=== PATIENT | female | born 1955 | race Caucasian/White ===

== ENCOUNTER 2021-03-12 05:23 | Observation (INO) | payer MEDICARE, OTHER ==
[2021-03-04 10:34] LABS: BASOPHILS # (AUTO) 0.1 (0.0-0.1); BASOPHILS % 0.6 % (0.0-1.0); EOSINOPHILS # (AUTO) 0.4 (0.0-0.4); EOSINOPHILS % 4.4 % (0.0-6.0); HEMATOCRIT 36.3 % (34.2-44.1); HEMOGLOBIN 11.7 g/dL (12.0-16.0); LYMPHOCYTES # (AUTO) 1.3 (1.0-3.2); MEAN CORPUSCULAR HGB CONC 32.2 g/dL (31-35); MEAN CORPUSCULAR VOLUME 89.9 fL (81-99); MONOCYTES # (AUTO) 0.6 (0.2-0.8); NEUTROPHILS # (AUTO) 5.6 (2.1-6.9); NEUTROPHILS % 70.7 % (38.7-80.0); PLATELET COUNT 197 x10e3/uL (140-360); RED BLOOD COUNT 4.04 x10e6/uL (3.6-5.1); RED CELL DISTRIBUTION WIDTH 14.4 % (11.7-14.4)
[2021-03-04 11:16] LABS: INR 0.9; PARTIAL THROMBOPLASTIN TIME 26.4 seconds (23.8-35.5); PROTHROMBIN TIME 12.7 seconds (11.9-14.5)
[2021-03-04 11:17] LABS: ANION GAP 14.3 mmol/L (8-16); BLOOD UREA NITROGEN 20 mg/dL (7-26); BUN/CREATININE RATIO 22 (6-25); CALCIUM 9.6 mg/dL (8.4-10.2); CARBON DIOXIDE 23 mmol/L (22-29); CHLORIDE 109 mmol/L (98-107); CREATININE, SERUM 0.92 mg/dL (0.57-1.11); EST GLOMERULAR FILTRATION RATE > 60 ML/MIN (60-); POTASSIUM 4.3 mmol/L (3.5-5.1); SODIUM 142 mmol/L (136-145)
[2021-03-04 11:33] LABS: GLUCOSE 57 mg/dL (74-118)
[~2021-03-12] VITALS: Ht 165.1 cm; Wt 108.9 kg
[~2021-03-12 05:23] MED LIST: ARIMIDEX1 MG PO; BENAZEPRIL HCL10 MG PO; CLARITIN10 MG PO; CRESTOR10 MG PO; HUMALOG MI100 UNIT/2 SQ; METFORMIN HCL500 MG PO; TOUJEO SOL300 UNIT/1 SC; ZETIA10 MG PO
[2021-03-12] MEDS ORDERED: HYDROCHLOROTHIA25 MG PO (05:44)
[2021-03-12] MEDS ORDERED: SCOPOLAMINE 1.5 MG PATCH ONE ×2 (06:43→07:43)
[2021-03-12] MEDS ORDERED: LIDOCAINE 1% W/EPINEPHRINE 20 ML VIAL ONE (06:43)
[2021-03-12] MEDS ORDERED: THROMBIN FOR SOLN 5,000 UNIT VIAL ONE (06:44)
[2021-03-12] MEDS ORDERED: Vancomycin IV 1 GM VIAL ONE (06:44)
[2021-03-12] MEDS ORDERED: ACETAMINOPHEN 1000 MG/100 ML 100 ML IV ONE (07:33)
[2021-03-12] MEDS ORDERED: IBUPROFEN 800MG/ 200ML 200 ML IV ONE (07:33)
[2021-03-12] MEDS ORDERED: LIDOCAINE HCL (LTA) 4 ML SOLN ONE (07:34)
[2021-03-12] MEDS ORDERED: SUGAMMADEX SODIUM 200 MG/2 ML VIAL IV ONE (07:40)
[2021-03-12] MEDS ORDERED: HYDROCODON-ACE1 EA12 PO (08:38)
[2021-03-12] MEDS ORDERED: PROMETHAZINE HCL (IM) 25 MG/ML VIAL IM PRN (08:45)
[2021-03-12] MEDS ORDERED: ZOLPIDEM TARTRATE 5 MG TAB PO PRN (08:45)
[2021-03-12] MEDS ORDERED: CEPACOL SORE THROAT LOZENGES PO PRN (08:45)
[2021-03-12] MEDS ORDERED: HYDROMORPHONE 2MG/ML 2 MG/ML ML IV PRN (08:45)
[2021-03-12] MEDS ORDERED: NON-FORMULARY MEDICATION (Insulin Npl/Insulin Lispro* (Humalog Mix 75-25 Kwikpen*) 1 UNIT) SQ SCH (08:45)
[2021-03-12] MEDS ORDERED: MAGNESIUM/ALUMINUM/SIMETHICONE 30 ML UDC PO PRN (08:45)
[2021-03-12] MEDS ORDERED: MORPHINE SULFATE INJ 4 MG/ML INJ 1ML IM PRN (08:45)
[2021-03-12] MEDS ORDERED: ONDANSETRON HCL INJ 2MG/ML 2ML 2 MG/ML VIAL IV PRN (08:45)
[2021-03-12] MEDS ORDERED: ACETAMINOPHEN 325 MG TAB PO PRN (08:45)
[2021-03-12] MEDS ORDERED: MEPERIDINE HCL INJ 25 MG/ML VIAL ONE (09:07)
[2021-03-12 11:20] VITALS: BP 152/80
[2021-03-12] MEDS ORDERED: MIDAZOLAM HCL 2 MG/2 ML VIAL ONE (11:30)
[2021-03-12 12:00] VITALS: BP 152/80
[2021-03-12] MEDS: ANASTROZOLE 1 MG TAB PO SCH (12:00)
[2021-03-12] MEDS: LORATADINE 10 MG TAB PO SCH (12:30)
[2021-03-12] MEDS: BENAZEPRIL HCL 10 MG TAB PO SCH (12:30)
[2021-03-12] MEDS: EZETIMIBE 10 MG TAB PO SCH (12:30)
[2021-03-12] MEDS ORDERED: HYDROCHLOROTHIAZIDE 25 MG TAB PO SCH (12:30)
[2021-03-12] MEDS: LACTATED RINGER'S 1,000 ML IV SCH ×2 (13:08→20:20)
[2021-03-12] MEDS ORDERED: PROPOFOL IV EMULSION 10 MG/ML 20 ML VIAL ONE (13:47)
[2021-03-12] MEDS ORDERED: ROCURONIUM BROMIDE 10 MG/ML 5ML VIAL IV ONE (13:47)
[2021-03-12] MEDS ORDERED: DEXAMETHASONE SOD PHOS INJ 4 MG/ML VIAL ONE (13:47)
[2021-03-12] MEDS ORDERED: GLYCOPYRROLATE INJ 0.2 MG/ML VIAL ONE (13:47)
[2021-03-12] MEDS ORDERED: LIDOCAINE HCL 2% JELLY 5 ML TUBE ONE (13:47)
[2021-03-12] MEDS ORDERED: LIDOCAINE HCL 2% LOCAL INJ 5 ML SDV VIAL INJ ONE (13:47)
[2021-03-12] MEDS ORDERED: SEVOFLURANE INHAL SOLN 250 ML PEN BTL ONE (13:47)
[2021-03-12] MEDS ORDERED: ONDANSETRON HCL INJ 2MG/ML 2ML 2 MG/ML VIAL ONE (13:47)
[2021-03-12] MEDS ORDERED: NEOSTIGMINE 1 MG/ML 10ML VIAL ONE (13:47)
[2021-03-12] MEDS ORDERED: POVIDONE IODINE 0.05% 0.05 % ML PO ONE (13:47)
[2021-03-12] MEDS: OXYCODONE/ACETAMINOPHEN 5-325 1 EACH TABLET PO PRN ×2 (15:42→20:33)
[2021-03-12] MEDS: CARISOPRODOL 350 MG TAB PO PRN ×2 (15:42→20:33)
[2021-03-12 16:19] VITALS: BP 144/63
[2021-03-12] MEDS: METFORMIN HCL 500 MG TAB PO SCH (16:26)
[2021-03-12] MEDS: NON-FORMULARY MEDICATION SQ SCH (16:30)
[2021-03-12] MEDS: Cefazolin 1 GM in SODIUM CHLORIDE 0.9% 50ML 50 ML IV SCH (17:14)
[2021-03-12 20:00] VITALS: BP 127/50
[2021-03-12 20:13] VITALS: BP 127/50
[2021-03-12] MEDS ORDERED: INSULIN GLARGINE HUM REC ANLOG 50 UNIT SC SCH (21:00)
[2021-03-12] MEDS ORDERED: SIMVASTATIN 40 MG TAB PO SCH (21:00)
[2021-03-13 00:22] VITALS: BP 120/49
[2021-03-13] MEDS: LACTATED RINGER'S 1,000 ML IV SCH (04:40)
[2021-03-13 05:01] VITALS: BP 116/56
[2021-03-13 07:48] VITALS: BP 131/61
[2021-03-13] MEDS: METFORMIN HCL 500 MG TAB PO SCH (08:19)
[2021-03-13] MEDS: LORATADINE 10 MG TAB PO SCH (08:19)
[2021-03-13] MEDS: BENAZEPRIL HCL 10 MG TAB PO SCH (08:19)
[2021-03-13] MEDS: ANASTROZOLE 1 MG TAB PO SCH (08:19)
[2021-03-13] MEDS: NON-FORMULARY MEDICATION SQ SCH ×2 (08:19→11:45)
[2021-03-13] MEDS: EZETIMIBE 10 MG TAB PO SCH (08:19)
[2021-03-13] MEDS: Cefazolin 1 GM in SODIUM CHLORIDE 0.9% 50ML 50 ML IV SCH ×3 (08:34)
[2021-03-13 08:40] VITALS: BP 131/61
[2021-03-13] MEDS ORDERED: ONDANSETRON HCL 4 MG ORAL DISINTEGRATING TAB PO PRN (10:30)
[2021-03-13 11:14] VITALS: BP 124/69
== END 2021-03-13 12:45 | disposition home or self-care (01) ==
LOC: OR 05:23 → PACU V 08:37 → MED/SURG 11:27
PROVIDERS: ADMIT Neurological Surgery; ATTEND Neurological Surgery
DX: M50.122 Cervical disc disorder at C5-C6 level with radiculopathy (principal); Z01.818 Encounter for other preprocedural examination; I10 Essential (primary) hypertension; E78.5 Hyperlipidemia, unspecified; Z85.3 Personal history of malignant neoplasm of breast; E11.9 Type 2 diabetes mellitus without complications
CPT/HCPCS: 20931; 22551; 22845; 36415 ×3; 71046; 72040; 77003; 80048; 82948 ×2; 85025; 85610; 85730; 86850; 86900; 88304; 88311; 93005; C1713 ×2; G0378 ×2; J0131; J0690 ×2; J1100; J2001 ×2; J2175; J2250; J2405; J2704; J2710; J3370; J7121

== ENCOUNTER → 2021-04-09 | Outpatient (CLI) | payer MEDICARE, OTHER ==
[~2021-04-09] MED LIST changes: +HYDROCHLOROTHIA25 MG PO; +HYDROCODON-ACE1 EA12 PO
== END ==
LOC: RAD 07:05
PROVIDERS: ATTEND Neurological Surgery
DX: M50.20 Other cervical disc displacement, unspecified cervical region (principal); M43.22 Fusion of spine, cervical region
CPT/HCPCS: 72050

== ENCOUNTER → 2021-08-05 | Outpatient (CLI) | payer MEDICARE, OTHER | LOC: RAD 10:25 | PROVIDERS: ATTEND Neurological Surgery | DX: M50.20 Other cervical disc displacement, unspecified cervical region (principal); M43.22 Fusion of spine, cervical region | CPT/HCPCS: 72050 ==

== ENCOUNTER → 2021-08-25 | Outpatient (CLI) | payer MEDICARE, OTHER ==
[~2021-08-25] MED LIST changes: +IOPAMIDOL 370 MG/ML 200 ML INFUS..BTL INJ ONE; +SODIUM CHLORIDE 0.9% 250ML 250 ML ONE; +SODIUM CHLORIDE 0.9% 500ML 500 ML ONE; +SODIUM CHLORIDE 0.9% 50ML 50 ML ONE
== END ==
LOC: CT 06:49
DX: C50.919 Malignant neoplasm of unspecified site of unspecified female breast (principal); M54.6 Pain in thoracic spine
CPT/HCPCS: 71260; J7040; J7050; Q9967

== ENCOUNTER → 2021-09-04 | Outpatient (CLI) | payer MEDICARE, OTHER ==
[~2021-09-04] MED LIST changes: -SODIUM CHLORIDE 0.9% 50ML 50 ML ONE
[2021-09-04 09:38] LABS: CREATININE, SERUM 0.96 mg/dL (0.57-1.11)
== END ==
LOC: CT 08:44
DX: C50.911 Malignant neoplasm of unspecified site of right female breast (principal); R16.0 Hepatomegaly, not elsewhere classified
CPT/HCPCS: 36415; 74178; 82565; 84520; J7040; J7050; Q9967

== ENCOUNTER → 2022-12-08 | Outpatient (CLI) | payer MEDICARE, OTHER ==
[~2022-12-08] MED LIST changes: -IOPAMIDOL 370 MG/ML 200 ML INFUS..BTL INJ ONE; -SODIUM CHLORIDE 0.9% 250ML 250 ML ONE; -SODIUM CHLORIDE 0.9% 500ML 500 ML ONE
== END ==
LOC: RAD 07:38
PROVIDERS: ATTEND Internal Medicine
DX: M25.561 Pain in right knee (principal)